=== PATIENT | female | born 1985 | race African-American/Black ===

== ENCOUNTER → 2017-09-27 | Outpatient (CLI) | payer BC ==
[2017-09-27 17:59] LABS: BASO % 0.2 % (0.0-1.0); EOS % 0.4 % (0.0-3.0); HEMATOCRIT 34.7 % (36.0-47.0); HEMOGLOBIN 11.4 g/dl (12.0-16.0); IMMATURE GRANULOCYTE # 0.1 10^3/uL (0-0); IMMATURE GRANULOCYTE % 0.8 % (0-0); LYMPH # 1.5 10^3/uL (1.5-4.5); LYMPH % 16.3 % (24.0-44.0); MEAN CORPUSCULAR HEMOGLOBIN 28.4 pg (27.0-33.0); MEAN CORPUSCULAR HGB CONC 32.9 g/dl (32.0-36.5); MEAN CORPUSCULAR VOLUME 86.3 fl (80.0-96.0); MONO # 0.5 10^3/uL (0.0-0.8); MONO % 5.3 % (0.0-5.0); NEUTROPHILS # 6.9 10^3/uL (1.8-7.7); PLATELET COUNT, AUTOMATED 303 10^3/uL (150-450); RED BLOOD COUNT 4.02 10^6/uL (4.00-5.40); RED CELL DISTRIBUTION WIDTH 12.1 % (11.5-14.5)
[2017-09-27 20:42] LABS: CHLAMYDIA DNA AMPLIFICATION NEGATIVE (NEGATIVE); GC DNA AMPLIFICATION NEGATIVE (NEGATIVE)
[2017-09-30 10:08] LABS: RUBELLA IgG QUALITATIVE IMMUNE (IMMUNE)
[2017-09-30 10:11] LABS: HBsAg Prenatal NEGATIVE (NEGATIVE)
[2017-09-30 10:38] LABS: HIV 1&2 SCREEN CENTAUR NEGATIVE (NEGATIVE)
== END ==
LOC: M SMT 13:48
DX: Z34.81 Encounter for supervision of other normal pregnancy, first trimester (principal)
CPT/HCPCS: 86762

== ENCOUNTER → 2017-09-30 | Outpatient (CLI) | payer BC | LOC: M SMT 12:48 | DX: Z34.82 Encounter for supervision of other normal pregnancy, second trimester (principal); Z3A.23 23 weeks gestation of pregnancy ==

== ENCOUNTER → 2017-10-29 | Outpatient (CLI) | payer BC ==
[2017-10-29 13:56] LABS: GLUCOSE CHALLENGE TEST 1 HOUR 80 MG/DL (LESS THAN 140)
[2017-10-29 14:01] LABS: BASO % 0.3 % (0.0-1.0); EOS # 0.1 10^3/uL (0.0-0.50); EOS % 0.6 % (0.0-3.0); HEMATOCRIT 32.9 % (36.0-47.0); HEMOGLOBIN 10.8 g/dl (12.0-16.0); IMMATURE GRANULOCYTE % 0.8 % (0-3.0); LYMPH # 1.4 10^3/uL (1.5-4.5); LYMPH % 17.9 % (24.0-44.0); MEAN CORPUSCULAR HEMOGLOBIN 27.9 pg (27.0-33.0); MEAN CORPUSCULAR HGB CONC 32.8 g/dl (32.0-36.5); MONO # 0.5 10^3/uL (0.0-0.8); MONO % 6.9 % (0.0-5.0); NEUTROPHILS # 5.8 10^3/uL (1.8-7.7); NEUTROPHILS % 73.5 % (36.0-66.0); PLATELET COUNT, AUTOMATED 294 10^3/uL (150-450); RED BLOOD COUNT 3.87 10^6/uL (4.00-5.40); RED CELL DISTRIBUTION WIDTH 11.9 % (11.5-14.5); WHITE BLOOD COUNT 7.9 10^3/uL (4.0-10.0)
== END ==
LOC: M SMT 10:47
DX: Z36.89 Encounter for other specified antenatal screening (principal); Z3A.00 Weeks of gestation of pregnancy not specified
CPT/HCPCS: 82950

== ENCOUNTER → 2017-12-25 | Outpatient (CLI) | payer BC ==
[2017-12-25 14:13] LABS: ALBUMIN 2.8 GM/DL (3.2-5.2); ALKALINE PHOSPHATASE 98 U/L (45-117); ALT/SGPT 24 U/L (12-78); AST/SGOT 30 U/L (7-37); BILIRUBIN,DIRECT < 0.1 MG/DL (0.0-0.2); BILIRUBIN,TOTAL 0.2 MG/DL (0.2-1.0); TOTAL PROTEIN 6.3 GM/DL (6.4-8.2)
[2017-12-27 08:06] LABS: BILE ACIDS FRACTIONATED 9.8 umol/L (4.7-24.5)
== END ==
LOC: M SMT 10:22
DX: O26.613 Liver and biliary tract disorders in pregnancy, third trimester (principal); Z3A.00 Weeks of gestation of pregnancy not specified
CPT/HCPCS: 80076

== ENCOUNTER 2017-12-30 11:58 | Inpatient (IN) | payer BC ==
[2017-12-30] MEDS: PRENATAL VITAMINS CHEWABLE TABLET PO (09:00)
[2017-12-30] MEDS: LACTATED RINGER'S 1000 ML IV (12:44)
[2017-12-30] MEDS: LR 1,000 ML IV ×2 (13:44→15:26)
[2017-12-30 13:56] LABS: MEAN CORPUSCULAR HEMOGLOBIN 27.4 pg (27.0-33.0); MEAN CORPUSCULAR HGB CONC 33.3 g/dl (32.0-36.5); MEAN CORPUSCULAR VOLUME 82.3 fl (80.0-96.0); PLATELET COUNT, AUTOMATED 284 10^3/uL (150-450); RED BLOOD COUNT 4.01 10^6/uL (4.00-5.40); RED CELL DISTRIBUTION WIDTH 12.7 % (11.5-14.5); WHITE BLOOD COUNT 8.5 10^3/uL (4.0-10.0)
[2017-12-30] MEDS ORDERED: FENTANYL 2MCG/ML ROPIVACAINE 0.2% IN 0.9% NACL 200ML IVBAG As Ordered (14:12)
[2017-12-30 14:28] LABS: ALT/SGPT 20 U/L (12-78); AST/SGOT 27 U/L (7-37); BILIRUBIN,TOTAL 0.2 MG/DL (0.2-1.0); CREATININE FOR GFR 0.64 MG/DL (0.55-1.30); GLOMERULAR FILTRATION RATE > 60.0 (>60); LDH LACTATE DEHYDROGENASE 235 U/L (84-246)
[2017-12-30] MEDS ORDERED: OXYTOCIN 30 UNITS IN 0.9% NaCl 500ML IV BAG (J2590) As Ordered (14:59)
[2017-12-30] MEDS: OXYTOCIN DRIP 30 UNITS in APPROPRIATE DILUENT 1 EA IV (15:10)
[2017-12-30] MEDS ORDERED: DOCUSATE SODIUM 100 MG CAP PO (15:30)
[2017-12-30] MEDS ORDERED: ONDANSETRON 4MG/2ML VIAL (J2405) IV (15:30)
[2017-12-30] MEDS ORDERED: PROMETHAZINE 25 MG TAB PO (15:30)
[2017-12-30] MEDS ORDERED: DIBUCAINE 1% OINTMENT 30GM TOP (15:30)
[2017-12-30] MEDS ORDERED: ACETAMINOPHEN 500 MG TAB PO (15:30)
[2017-12-30] MEDS ORDERED: LABETALOL HCL 100 MG/20 ML VIAL As Ordered (15:34)
[2017-12-30] MEDS: LABETALOL HCL 100 MG/20 ML VIAL IV ×3 (15:47→16:30)
[2017-12-30] MEDS: IBUPROFEN 800 MG TAB PO (16:17)
[2017-12-30] MEDS: RHOGAM 300 MCG (1500 IU) INJ (J2790) IM (19:58)
[2017-12-30] MEDS: MEASLES,MUMPS,RUBELLA VACCINE INJ (MMR-II) (90707) SC (19:59)
[2017-12-31] MEDS: IBUPROFEN 800 MG TAB PO ×2 (05:37→23:27)
[2017-12-31] MEDS: PRENATAL VITAMINS CHEWABLE TABLET PO (09:12)
[2017-12-31] MEDS: PANTOPRAZOLE 40MG TAB (PROTONIX) PO (11:23)
[2018-01-01] MEDS: PANTOPRAZOLE 40MG TAB (PROTONIX) PO (08:14)
[2018-01-01] MEDS: PRENATAL VITAMINS CHEWABLE TABLET PO (08:14)
[2018-01-01] MEDS: NIFEdipine 30 MG XL TAB PO (08:50)
[2018-01-01 14:34] LABS: HEMATOCRIT 31.3 % (36.0-47.0); HEMOGLOBIN 10.3 g/dl (12.0-15.5); MEAN CORPUSCULAR HEMOGLOBIN 27.4 pg (27.0-33.0); MEAN CORPUSCULAR HGB CONC 32.9 g/dl (32.0-36.5); MEAN CORPUSCULAR VOLUME 83.2 fl (80.0-96.0); PLATELET COUNT, AUTOMATED 276 10^3/uL (150-450); RED BLOOD COUNT 3.76 10^6/uL (4.00-5.40); RED CELL DISTRIBUTION WIDTH 13.1 % (11.5-14.5); WHITE BLOOD COUNT 10.1 10^3/uL (4.0-10.0)
[2018-01-01 14:53] LABS: ALT/SGPT 22 U/L (12-78); AST/SGOT 33 U/L (7-37); BILIRUBIN,TOTAL 0.2 MG/DL (0.2-1.0); GLOMERULAR FILTRATION RATE > 60.0 (>60); LDH LACTATE DEHYDROGENASE 310 U/L (84-246); URIC ACID 3.7 MG/DL (2.6-6.0)
== END 2018-01-01 20:20 | disposition home or self-care (01) | DRG 560 ==
LOC: M LDO 11:58 → M LDI 12:47 → M OBS 18:52
PROC: 10E0XZZ Delivery of Products of Conception, External Approach (ICD-10-PCS; principal; 2017-12-30)
DX: O60.14X0 Preterm labor third trimester with preterm delivery third trimester, not applicable or unspecified (principal); O13.5 Gestational [pregnancy-induced] hypertension without significant proteinuria, complicating the puerperium; Z37.0 Single live birth; Z3A.36 36 weeks gestation of pregnancy